=== PATIENT | male | born 1970 | race Native Hawaiian/Other Pacific Islander ===

== ENCOUNTER 2017-05-08 11:27 | Outpatient (CLI) | payer OTHER | END 2017-05-08 19:36 | disposition home or self-care (01) | LOC: RAD 11:27 | DX: Z02.1 Encounter for pre-employment examination (principal) ==

== ENCOUNTER 2020-02-23 18:54 | Emergency (ER) | payer OTHER ==
[~2020-02-23] VITALS: Ht 190.5 cm; Wt 99.8 kg
[2020-02-23 20:13] VITALS: BP 124/77; TEMP 98.3
== END 2020-02-23 20:13 | disposition home or self-care (01) ==
LOC: ED 18:54
DX: J01.80 Other acute sinusitis (principal); J30.89 Other allergic rhinitis
CPT/HCPCS: 87502; 87651; 99283